=== PATIENT | male | born 1975 | race Hispanic/Latino ===

== ENCOUNTER → 2019-05-22 | Outpatient (CLI) | payer OTHER ==
--- NOTE | 2019-05-22 09:09 | Diagnostic Imaging Report ---
EXAM: MRI Right Knee without contrast TECHNIQUE: Magnetic resonance imaging of the RIGHT Knee was performed WITHOUT intravenous contrast. COMPARISON: None. FINDINGS: Joint effusion: Small joint effusion. Hoffa's fat pad is unremarkable. Menisci: Undersurface tear of posterior horn of medial meniscus. Tendons and Ligaments: The ACL and the PCL are intact. The collateral ligaments are unremarkable. The iliotibial band is unremarkable. The extensor mechanism appears normal. Articular Cartilage: Partial-thickness fissuring along the medial femoral condyle articular cartilage without focal full-thickness defect. Bone: The bone and bone marrow are normal. IMPRESSION: Undersurface tear posterior horn of medial meniscus. Partial thickness fissuring along the medial femoral condyle articular cartilage without focal full-thickness defect. Small joint effusion. Signed by: Omega Jackson MD on 05/22/2019 9:05 AM
== END ==
LOC: MRI 07:44
PROVIDERS: ATTEND Specialist
DX: S83.221A Peripheral tear of medial meniscus, current injury, right knee, initial encounter (principal)

== ENCOUNTER → 2020-12-11 | Day surgery (SDC) | payer OTHER ==
[2020-12-08 09:07] LABS: BASOPHILS % 0.3 % (0.0-1.0); EOSINOPHILS % 0.7 % (0.0-6.0); HEMATOCRIT 44.7 % (38.2-49.6); LYMPHOCYTES % 33.9 % (18.0-39.1); MEAN CORPUSCULAR HEMOGLOBIN 30.6 pg (28-32); MEAN CORPUSCULAR HGB CONC 33.6 g/dL (31-35); MEAN CORPUSCULAR VOLUME 91.2 fL (81-99); MONOCYTES # (AUTO) 0.5 (0.2-0.8); MONOCYTES % 8.3 % (4.4-11.3); NEUTROPHILS # (AUTO) 3.2 (2.1-6.9); NEUTROPHILS % 55.8 % (38.7-80.0); PLATELET COUNT 202 x10e3/uL (140-360)
[2020-12-08 09:26] LABS: ANION GAP 12.1 mmol/L (8-16); BLOOD UREA NITROGEN 18 mg/dL (7-26); BUN/CREATININE RATIO 21 (6-25); CALCIUM 9.1 mg/dL (8.4-10.2); CARBON DIOXIDE 25 mmol/L (22-29); CHLORIDE 108 mmol/L (98-107); CREATININE, SERUM 0.84 mg/dL (0.72-1.25); EST GLOMERULAR FILTRATION RATE > 60 ML/MIN (60-); GLUCOSE 105 mg/dL (74-118); POTASSIUM 4.1 mmol/L (3.5-5.1); SODIUM 141 mmol/L (136-145)
[~2020-12-11] MED LIST: BUPIVACAINE 0.25% 30ML SDV ONE; CEFAZOLIN SOD 1 GM/NS 50ML 50 ML IV ONE; DEXAMETHASONE SOD PHOS INJ 4 MG/ML VIAL ONE; FENTANYL CITRATE/PF 100MCG/2 ML INJ ONE; LIDOCAINE HCL 2% JELLY 5 ML TUBE ONE; LIDOCAINE HCL 2% LOCAL INJ 5 ML SDV VIAL INJ ONE; MIDAZOLAM HCL 2 MG/2 ML VIAL ONE; NEOSTIGMINE 1 MG/ML 10ML VIAL ONE; ONDANSETRON HCL INJ 2MG/ML 2ML 2 MG/ML VIAL ONE; POVIDONE IODINE 0.05% 0.05 % ML PO ONE; PROPOFOL IV EMULSION 10 MG/ML 20 ML VIAL ONE; SEVOFLURANE INHAL SOLN 250 ML PEN BTL ONE
[2020-12-11 14:40] VITALS: BP 140/84
== END | disposition home or self-care (01) ==
LOC: OR 10:12
PROVIDERS: ATTEND Urology
DX: N43.40 Spermatocele of epididymis, unspecified (principal); N43.3 Hydrocele, unspecified; N40.1 Benign prostatic hyperplasia with lower urinary tract symptoms; N13.8 Other obstructive and reflux uropathy; R35.1 Nocturia; N35.912 Unspecified bulbous urethral stricture, male; N32.89 Other specified disorders of bladder; N52.9 Male erectile dysfunction, unspecified; K21.9 Gastro-esophageal reflux disease without esophagitis; F41.9 Anxiety disorder, unspecified; Z01.812 Encounter for preprocedural laboratory examination; Z20.822 Contact with and (suspected) exposure to COVID-19
CPT/HCPCS: 36415; 52000; 54840; 55040; 80048; 85025; 88304; J0690; J1100; J2001 ×2; J2250; J2405; J2704; J3010; U0002; J2710